=== PATIENT | female | born 1985 | race Hispanic/Latino ===

== ENCOUNTER 2020-11-06 21:47 | Emergency (ER) | payer OTHER ==
[~2020-11-06] VITALS: Ht 160 cm; Wt 184.1 kg
[2020-11-06] MEDS ORDERED: CYCLOBENZAPRINE 10MG TABLET PO ONE (23:45)
[2020-11-06] MEDS ORDERED: PERCOCET 5MG/325MG TAB PO ONE (23:45)
[2020-11-07] MEDS ORDERED: CYCL-707 PO
[2020-11-07] MEDS ORDERED: NAPR-837 PO (00:01)
[2020-11-07] MEDS ORDERED: NORCO 5/325MG TABLET (BULK FOR ED) PO ONE (00:15)
--- NOTE | 2020-11-07 00:25 | REPVR ---
PROCEDURE INFORMATION: Exam: CT Lumbar Spine Without Contrast Exam date and time: 11/06/2020 11:32 PM Age: 35 years old Clinical indication: Low back pain; Additional info: Radiculopathy left [id number] TECHNIQUE: Imaging protocol: Computed tomography images of the lumbar spine without contrast. Radiation optimization: All CT scans at this facility use at least one of these dose optimization techniques: automated exposure control; mA and/or kV adjustment per patient size (includes targeted exams where dose is matched to clinical indication); or iterative reconstruction. COMPARISON: No relevant prior studies available. FINDINGS: Limitations: Examination is limited by body habitus. Examination is limited by motion artifact. Vertebrae: No acute fracture. Disc spaces are preserved. Normal alignment. Rudimentary ribs at L1. Discs/Spinal canal/Neural foramina: Limited evaluation of spinal canal. Moderate to severe right neural foramina narrowing at L5-S1. Soft tissues: There is dependent subcutaneous edema. IMPRESSION: 1. Suboptimal evaluation. 2. No acute fracture. Electronically signed by: Hasmukh Lopez On 11/07/2020 00:25:25 AM
[2020-11-07 01:52] VITALS: BP 117/56
== END 2020-11-07 01:50 | disposition home or self-care (01) ==
LOC: M ED 21:47
DX: M54.5 Low back pain (principal); E66.01 Morbid (severe) obesity due to excess calories; Z68.45 Body mass index [BMI] 70 or greater, adult; M48.07 Spinal stenosis, lumbosacral region

== ENCOUNTER 2023-02-22 11:36 | Emergency (ER) | payer OTHER ==
[~2023-02-22] VITALS: Ht 160 cm; Wt 196.7 kg
[~2023-02-22 11:36] MED LIST: CYCL-707 PO; NAPR-837 PO
[2023-02-22] MEDS ORDERED: KETOROLAC 30 MG/ML 1ML VIAL IV ONE (12:20)
[2023-02-22 12:41] LABS: BASO % 0.4 % (0.0-1.0); EOS # 0.1 10^3/uL (0.0-0.5); EOS % 1.1 % (0.0-3.0); HEMATOCRIT 42.3 % (36.0-47.0); HEMOGLOBIN 13.9 g/dl (12.0-15.5); LYMPH # 1.9 10^3/uL (1.5-5.0); LYMPH % 18.7 % (24.0-44.0); MEAN CORPUSCULAR HEMOGLOBIN 29.1 pg (27.0-33.0); MEAN CORPUSCULAR HGB CONC 32.9 g/dl (32.0-36.5); MEAN CORPUSCULAR VOLUME 88.7 fl (80.0-96.0); MONO # 0.5 10^3/uL (0.0-0.8); NEUTROPHILS # 7.6 10^3/uL (1.5-8.5); NEUTROPHILS % 74.5 % (36.0-66.0); PLATELET COUNT, AUTOMATED 319 10^3/uL (150-450); RED BLOOD COUNT 4.77 10^6/uL (4.00-5.40); WHITE BLOOD COUNT 10.1 10^3/uL (4.0-10.0)
[2023-02-22 13:21] LABS: BLOOD UREA NITROGEN 12 MG/DL (9-23); CALCIUM LEVEL 9.1 MG/DL (8.5-10.1); CARBON DIOXIDE LEVEL 29 MMOL/L (20-31); CHLORIDE LEVEL 103 MMOL/L (98-107); CREATININE FOR GFR 0.66 MG/DL (0.55-1.30); GLOMERULAR FILTRATION RATE > 60.0 (>60); GLUCOSE, FASTING 107 MG/DL (60-100); HCG, SERUM QUANTITATIVE < 2.6 MIU/ML (<4.2); POTASSIUM SERUM 4.1 MMOL/L (3.5-5.1); SODIUM LEVEL 138 MMOL/L (136-145)
[2023-02-22 14:43] VITALS: BP 126/75
== END 2023-02-22 14:52 | disposition home or self-care (01) ==
LOC: M ED 11:36
DX: N93.8 Other specified abnormal uterine and vaginal bleeding (principal); E28.2 Polycystic ovarian syndrome; F10.10 Alcohol abuse, uncomplicated
CPT/HCPCS: 76830; 76856; 80048; 84702; 85025; 86850; 86900; 86901; 93976; 96374; 99284; J1885

== ENCOUNTER → 2023-04-02 | Outpatient (CLI) | payer OTHER | LOC: M WUC 12:24 | PROVIDERS: ATTEND Physician Assistant | DX: M76.62 Achilles tendinitis, left leg (principal); M19.072 Primary osteoarthritis, left ankle and foot ==

== ENCOUNTER → 2025-08-10 | Outpatient (CLI) | payer OTHER | LOC: M RAD 08:46 | PROVIDERS: ATTEND Nurse Practitioner Family | DX: E66.01 Morbid (severe) obesity due to excess calories (principal); Z98.84 Bariatric surgery status; R10.9 Unspecified abdominal pain ==

== ENCOUNTER → 2025-08-24 | Outpatient (CLI) | payer OTHER ==
[~2025-08-24] MED LIST changes: +ISOVUE-370 76% 100 ML VIAL ONE
== END ==
LOC: M PLAIMG 13:28
PROVIDERS: ATTEND Nurse Practitioner Family
DX: R10.9 Unspecified abdominal pain (principal); Z98.84 Bariatric surgery status; E66.01 Morbid (severe) obesity due to excess calories; R16.2 Hepatomegaly with splenomegaly, not elsewhere classified; Z90.49 Acquired absence of other specified parts of digestive tract; K42.9 Umbilical hernia without obstruction or gangrene
CPT/HCPCS: 74177; Q9967